=== PATIENT | female | born 1955 | race Caucasian/White ===

== ENCOUNTER 2018-11-13 10:48 | Observation (INO) | payer OTHER ==
[2018-11-13 12:13] LABS: Basophils # (A) 0.1 k/uL (0-0.2); Basophils % (A) 1 %; Eosinophils # (A) 0.4 k/uL (0-0.7); Eosinophils % (A) 4 %; HCT 42.9 % (34.0-46.0); HGB 13.9 gm/dL (11.4-16.0); Lymphocytes # (A) 3.8 k/uL (1.0-4.8); Lymphocytes % (A) 38 %; MCH 31.1 pg (25.0-35.0); MCHC 32.5 g/dL (31.0-37.0); MCV 95.7 fL (80.0-100.0); Mean Platelet Volume 7.1; Monocytes # (A) 0.5 k/uL (0-1.0); Monocytes % (A) 5 %; Neutrophils # (A) 5.2 k/uL (1.3-7.7); Neutrophils % (A) 52 %; Platelet Count 391 k/uL (150-450); RBC 4.48 m/uL (3.80-5.40); RDW 14.1 % (11.5-15.5); WBC 10.2 k/uL (3.8-10.6)
[2018-11-13 12:17] LABS: INR 0.9 (<1.2); Partial Thromboplastin Time 23.7 sec (22.0-30.0); Prothrombin Time 9.5 sec (9.0-12.0)
[2018-11-13 12:21] LABS: ALT 14 U/L (9-52); AST 15 U/L (14-36); Albumin 4.2 g/dL (3.5-5.0); Alkaline Phosphatase 83 U/L (38-126); Anion Gap 4 mmol/L; Blood Urea Nitrogen 20 mg/dL (7-17); Calcium 10.2 mg/dL (8.4-10.2); Carbon Dioxide 27 mmol/L (22-30); Chloride 109 mmol/L (98-107); Glucose 102 mg/dL (74-99); Lipase 141 U/L (23-300); Magnesium 2.2 mg/dL (1.6-2.3); Sodium 140 mmol/L (137-145); Total Bilirubin 0.4 mg/dL (0.2-1.3)
--- NOTE | 2018-11-13 12:32 | XR ---
EXAMINATION TYPE: XR chest 2V DATE OF EXAM: 11/13/2018 COMPARISON: None INDICATION: Chest pain TECHNIQUE: Frontal and lateral views of the chest are obtained. FINDINGS: The heart size is normal. The pulmonary vasculature is normal. There is some streak opacity at the left base could be some atelectasis. There is mild hyperinflation present. Correlate for respiratory effort versus COPD. There is a 1.3 cm density within the right lo wer lung field. Follow-up with CT is recommended. IMPRESSION: 1. Right lower lobe density. Neoplasm is not excluded. CT chest recommended for additional workup. 2. Mild streak atelectasis left base
--- NOTE | 2018-11-13 13:07 | ED ---
Chest Pain HPI - General Chief Complaint: Chest Pain Stated Complaint: kalyan, cough Time Seen by Provider: 11/13/18 11:29 Source: patient, RN notes reviewed, old records reviewed Mode of arrival: ambulatory Limitations: no limitations - History of Present Illness Initial Comments: This is a 62-year-old female the ER with chest pain today. Patient unsure medical history never seen a doctor was having crushing anterior chest pain with shortness of breath occasional diaphoresis occasional chills. Pain for a few days now with no alleviating factors. No prior cardiac evaluation, no recent travel history no sick contacts. MD Complaint: chest pain -: days(s) Onset: during rest, during exertion Pain Location: substernal, left chest Pain Radiation: none Severity: moderate Severity scale (1-10): 4 Quality: tightness, heaviness Consistency: intermittent Improves With: eating, movement, rest Worsens With: nothing Context: recent illness Other Symptoms: palpitations Treatments Prior to Arrival: none - Related Data Home Medications Medication Instructions Recorded Confirmed Hydrocodone/Acetaminophen [[place] 1 tab PO Q6HR PRN 11/13/18 11/13/18 7.5-325] Allergies Allergy/AdvReac Type Severity Reaction Status Date / Time No Known Allergies Allergy Verified 11/13/18 12:02 Review of Systems ROS Statement: Those systems with pertinent positive or pertinent negative responses have been documented in the HPI. ROS Other: All systems not noted in ROS Statement are negative. EKG Findings - EKG Comments: EKG Findings:: EKG shows sinus rhythm rate of 67, LA 146, QRS 76, QTc 428 Past Medical History Past Medical History: No Reported History History of Any Multi-Drug Resistant Organisms: None Reported Past Surgical History: Tonsillectomy Past Psychological History: No Psychological Hx Reported Smoking Status: Current every day smoker Past Alcohol Use History: Rare Past Drug Use History: None Reported General Exam Limitations: no limitations General appearance: alert, in no apparent distress Head exam: Present: atraumatic, normocephalic, normal inspection Eye exam: Present: normal appearance, PERRL, EOMI. Absent: scleral icterus, conjunctival injection, periorbital swelling ENT exam: Present: normal exam, mucous membranes moist Neck exam: Present: normal inspection. Absent: tenderness, meningismus, lymphadenopathy Respiratory exam: Present: normal lung sounds bilaterally. Absent: respiratory distress, wheezes, rales, rhonchi, stridor Cardiovascular Exam: Present: regular rate, normal rhythm, normal heart sounds. Absent: systolic murmur, diastolic murmur, rubs, gallop, clicks GI/Abdominal exam: Present: soft, normal bowel sounds. Absent: distended, tenderness, guarding, rebound, rigid Extremities exam: Present: normal inspection, full ROM, normal capillary refill. Absent: tenderness, pedal edema, joint swelling, calf tenderness Back exam: Present: normal inspection Neurological exam: Present: alert, oriented X3, CN II-XII intact Psychiatric exam: Present: normal affect, normal mood Skin exam: Present: warm, dry, intact, normal color. Absent: rash Course Vital Signs 11/13/18 11/13/18 11/13/18 11:20 12:01 12:20 Temperature 97.9 F Pulse Rate 87 58 L 75 Respiratory 18 Rate Blood Pressure 103/72 108/84 109/81 O2 Sat by Pulse 96 97 98 Oximetry 11/13/18 11/13/18 11/13/18 13:00 13:42 15:20 Temperature Pulse Rate 66 69 73 Respiratory 18 18 Rate Blood Pressure 111/62 113/73 112/99 O2 Sat by Pulse 97 98 98 Oximetry 11/13/18 11/13/18 16:11 17:34 Temperature Pulse Rate 65 74 Respiratory 18 16 Rate Blood Pressure 129/73 105/57 O2 Sat by Pulse 98 98 Oximetry - Reevaluation(s) Reevaluation #1: Medical records reviewed still complaining of chest pain Chest Pain MDM - MDM 62 female the ER shortness of breath and chest pain. Patient be admitted for cardiac observation. EKG normal troponin negative CTA negative for acute disease Disposition Clinical Impression: Chest pain Disposition: ADMITTED IP TO THIS HOSP Condition: Good Is patient prescribed a controlled substance at d/c from ED?: No
--- NOTE | 2018-11-13 14:23 | CT ---
EXAMINATION TYPE: CT angio chest DATE OF EXAM: 11/13/2018 COMPARISON: None HISTORY: NEELA, Cough CT DLP: 234.6 mGycm CONTRAST: CT chest with contrast and 3D reconstruction with MIP imaging is performed without and with IV Contra st, patient injected with 100 ml mL of Isovue 370. Contrast-enhanced CT of the chest was performed through the course of the pulmonary arteries with denny g and mediastinal window settings submitted. 3D reconstruction with MIP imaging was also performed. PULMONARY ARTERIES: The pulmonary arteries and their major tributaries are patent. I do not see xavier dence for sizable filling defect to suggest pulmonary embolic process. LUNGS: The lungs are clear and free of infiltrate. No evidence for atelectasis. No pulmonary nodule or mass is detected. No pleural effusion. Calcified granuloma right lung. Emphysematous changes no zaina. MEDIASTINUM: Thoracic aorta is of normal caliber,however, evaluation is limited given timing of the contrast bolus. If there is concern for thoracic aortic pathology consider HIREN. Correlate clinicall y . The heart is not enlarged. No evidence for mediastinal mass. No mediastinal lymph nodes greater than 1cm. HILAR STRUCTURES: No evidence for mass. No hilar lymph nodes greater than 1 cm. UPPER ABDOMEN: No significant abnormality is seen. IMPRESSION: 1. No evidence for Pulmonary embolism at this time.
[2018-11-13] MEDS ORDERED: ASPIRIN 81 MG PO STA (14:37)
[2018-11-13] MEDS ORDERED: HEPARIN SODIUM,PORCINE 5,000 UNIT/ML 1 ML VIAL IV PRN (14:37)
[2018-11-13] MEDS ORDERED: NITROGLYCERIN SL TABS 0.4 MG TAB SUBLINGUAL PRN (14:37)
[2018-11-13] MEDS ORDERED: HEPARIN SODIUM,PORCINE 5,000 UNIT/ML 1 ML VIAL IV ONE (14:37)
[2018-11-13] MEDS ORDERED: HEPARIN SOD,PORK IN 0.45% NACL 25,000 UNIT in 0.45% NACL 1 250ML.BAG IV SCH (14:45)
[2018-11-13] MEDS ORDERED: METOPROLOL TARTRATE 25 MG TAB PO SCH (21:00)
[2018-11-13 21:10] VITALS: RESP 18
[2018-11-13 21:16] VITALS: BMI 24.9
[2018-11-13] MEDS ORDERED: MORPHINE SULFATE 2 MG/ML SYRINGE IVP PRN (22:07)
[2018-11-14 00:51] LABS: D-Dimer 0.73 mg/L FEU (<0.60); Partial Thromboplastin Time 39.4 sec (22.0-30.0)
[2018-11-14 08:05] LABS: Mean Platelet Volume 7.4; Platelet Count 362 k/uL (150-450)
[2018-11-14 08:36] LABS: Cholesterol 211 mg/dL (<200); HDL Cholesterol 48 mg/dL (40-60); LDL Cholesterol,Calculated 142 mg/dL (0-99); Triglycerides 106 mg/dL (<150)
[2018-11-14] MEDS ORDERED: METOPROLOL TARTRATE 25 MG TAB PO SCH (09:00)
[2018-11-14] MEDS ORDERED: ATORVASTATIN 80 MG TAB PO SCH (09:00)
[2018-11-14] MEDS ORDERED: ASPIRIN 325 MG TAB PO SCH (09:00)
--- NOTE | 2018-11-14 10:23 | P.CRDCN ---
History of Present Illness History of present illness: This is a pleasant 62 female past medical history significant for chronic nicotine dependence. She denies any other previous medical history although she does not see a doctor nor has she ever in the past. We have been asked to see her in consultation for symptoms of chest discomfort. She states she has been coughing pretty significantly over the previous couple weeks and she recently developed a pain that is sharp in nature in the left precordial region that radiates around into the left axilla into the left mid back at times that is exacerbated by coughing and is worse on palpation. She is seen and examined resting comfortably in bed in no acute distress. She currently denies symptoms of chest discomfort, shortness of breath, dizziness or palpitations. EKG reveals sinus mechanism heart rate of [address] or T wave abnormalities noted. Chest x-ray reveals a right lower lobe density, neoplasm is not excluded with a mild streaky atelectasis at the left base. CTA chest is negative for pulmonary embolism, the lungs are clear and free of infiltrate with no evidence of atelectasis. Emphysematous changes are noted. Laboratory data reviewed, WBC 10.2, hemoglobin 13.9, platelets 362, d-dimer 0.73, sodium 140, potassium 5.0, magnesium 2.2, creatinine 0.77, cardiac enzymes negative 3, LDL 142, HDL 48 and NTproBNP 104. She currently takes no cardiac medications. At the time of my exam: CONSTITUTIONAL: Denies fever. Denies chills. EYES: Denies blurred vision. Denies vision changes. Denies eye pain. EARS, NOSE, MOUTH & THROAT: Denies headache. Denies sore throat. Denies ear pain. CARDIOVASCULAR: Denies chest pain. Denies shortness of breath. Denies orthopnea. Denies PND. Denies palpitations. RESPIRATORY: Denies cough. GASTROINTESTINAL: Denies abdominal pain. Denies diarrhea. Denies constipation. Denies nausea. Denies vomiting. MUSCULOSKELETAL: Denies myalgias. INTEGUMENTARY: Denies pruitis. Denies rash. NEUROLOGIC: Denies numbness. Denies tingling. Denies weakness. PSYCHIATRIC: Denies anxiety. Denies depression. ENDOCRINE: Denies fatigue. Denies weight change. Denies polydipsia. Denies polyurina. GENITOURINARY: Denies burning, hematuria or urgency with micturation. HEMATOLOGIC: Denies history of anemia. Denies bleeding. Blood pressure 99/61 heart rate 57 afebrile maintaining oxygen saturation on room air GENERAL: This is a 62-year-old female in no apparent distress at the time of my examination. HEENT: Head is atraumatic, normocephalic. Pupils are equal, round. Sclerae anicteric. Conjunctivae are clear. Mucous membranes of the mouth are moist. Neck is supple. There is no jugular venous distention. No carotid bruit is heard. LUNGS: Faint expiratory wheeze, scattered rhonchi, no rales. Respirations are equal and unlabored No chest wall tenderness is noted on palpation or with deep breathing. HEART: Regular rate and rhythm without murmurs, rubs or gallops. S1 and S2 heard. ABDOMEN: Soft, nontender. Bowel sounds are heard. No organomegaly noted. EXTREMITIES: No evidence of peripheral edema and no calf tenderness noted. VASCULAR: Radial and dorsalis pedis pulses palpated, no evidence of clubbing. NEUROLOGIC: Patient is awake, alert and oriented x3. ASSESSMENT Pleuritic chest pain, an acute event has been ruled out. Dyslipidemia Chronic nicotine dependence Probably underlying COPD PLAN An acute coronary event has been ruled out. Obtain 2-D echocardiogram and Doppler study to assess cardiac structure and function. Pain is very atypical for angina with pleuritc features and most likely related to coughing. Underlying COPD is probable. Advised her to see a [employer] Taper Helper as an outpatient. Overall stable from a cardiac perspective, follow up in the office with Dr. Sierra in 2 weeks for outpatient stress testing once her coughing has subsided. Thank you kindly for this consultation. Nurse Practitioner note has been reviewed, I agree with a documented findings and plan of care. Patient was seen and examined. Past Medical History Past Medical History: No Reported History History of Any Multi-Drug Resistant Organisms: None Reported Past Surgical History: Tubal Ligation Smoking Status: Current every day smoker - Past Family History Mother Family Medical History: Cancer Additional Family Medical History / Comment(s): Breast Ca, hip replacement Father Additional Family Medical History / Comment(s): lukemia, triple bypass Medications and Allergies Home Medications Medication Instructions Recorded Confirmed Type Hydrocodone/Acetaminophen [[place] 1 tab PO Q6HR PRN 11/13/18 11/13/18 History 7.5-325] Allergies Allergy/AdvReac Type Severity Reaction Status Date / Time No Known Allergies Allergy Verified 11/13/18 21:04 Physical Exam Vitals: Vital Signs Temp Pulse Pulse Resp BP BP Pulse Ox 11/14/18 07:15 98.4 F 57 L 18 99/61 98 11/14/18 03:57 98.3 F 70 18 90/59 93 L 11/14/18 03:32 18 11/14/18 00:00 98.1 F 65 18 96/64 97 11/13/18 21:08 98.0 F 72 18 109/67 96 11/13/18 20:26 98.5 F 81 16 94/61 98 11/13/18 20:00 18 11/13/18 19:03 77 18 104/68 97 11/13/18 17:34 74 16 105/57 98 11/13/18 16:11 65 18 129/73 98 11/13/18 15:20 73 18 112/99 98 11/13/18 13:42 69 18 113/73 98 11/13/18 13:00 66 111/62 97 11/13/18 12:20 75 109/81 98 11/13/18 12:01 58 L 108/84 97 11/13/18 11:20 97.9 F 87 18 103/72 96 Intake and Output 11/13/18 11/14/18 11/14/18 22:59 06:59 14:59 Intake Total 80.509 Balance 80.509 Intake: Intake, IV Titration 80.509 Amount Heparin Sod,Pork in 0.45% 80.509 NaCl 25,000 unit In 0.45 % NaCl 1 250ml.bag @ 12 UNITS/KG/HR 7.893 mls/hr IV .Q24H [facility] Rx#: [id number] Other: # Voids 1 1 Results 11/14/18 07:36 11/13/18 11:56 Cardiac Enzymes 11/13/18 11/13/18 11/13/18 Range/Units 11:56 11:56 17:24 AST 15 (14-36) U/L Troponin I <0.012 <0.012 (0.000-0.034) ng/mL 11/14/18 Range/Units 00:15 AST (14-36) U/L Troponin I <0.012 (0.000-0.034) ng/mL Coagulation 11/13/18 11/14/18 11/14/18 Range/Units 11:56 00:15 07:36 PT 9.5 (9.0-12.0) sec APTT 23.7 39.4 H 52.9 H (22.0-30.0) sec CBC 11/13/18 Range/Units 11:56 WBC 10.2 (3.8-10.6) k/uL RBC 4.48 (3.80-5.40) m/uL Hgb 13.9 (11.4-16.0) gm/dL Hct 42.9 (34.0-46.0) % Plt Count 391 (150-450) k/uL Comprehensive Metabolic Panel 11/13/18 Range/Units 11:56 Sodium 140 (137-145) mmol/L Potassium 5.0 (3.5-5.1) mmol/L Chloride 109 H (98-107) mmol/L Carbon Dioxide 27 (22-30) mmol/L BUN 20 H (7-17) mg/dL Creatinine 0.77 (0.52-1.04) mg/dL Glucose 102 H (74-99) mg/dL Calcium 10.2 (8.4-10.2) mg/dL AST 15 (14-36) U/L ALT 14 (9-52) U/L Alkaline Phosphatase 83 (38-126) U/L Total Protein 7.0 (6.3-8.2) g/dL Albumin 4.2 (3.5-5.0) g/dL Current Medications Generic Name Dose Route Start Last Admin Trade Name Freq PRN Reason Stop Dose Admin Aspirin 325 mg 11/14/18 09:00 Aspirin PO DAILY [facility] Atorvastatin Calcium 80 mg 11/14/18 09:00 Lipitor PO DAILY [facility] Heparin Sodium (Porcine) 0 unit 11/13/18 14:37 Heparin IV Q6HR PRN Low PTT Protocol Heparin Sodium/Sodium Chloride 250 mls @ 7.893 mls/hr 11/13/18 14:45 11/14/18 01:29 25,000 unit/ Sodium Chloride IV 15 units/kg/hr .Q24H [facility] 9.866 mls/hr Titration Protocol 12 UNITS/KG/HR Metoprolol Tartrate 25 mg 11/13/18 21:00 11/13/18 22:17 Lopressor PO 25 mg BID [facility] Administration Morphine Sulfate 2 mg 11/13/18 22:07 11/13/18 22:17 Morphine Sulfate (Inj) IVP 2 mg Q4H PRN Administration Pain/Discomfort Nitroglycerin 0.4 mg 11/13/18 14:37 Nitrostat SUBLINGUAL Q5M PRN Chest Pain Intake and Output 11/13/18 11/14/18 11/14/18 22:59 06:59 14:59 Intake Total 80.509 Balance 80.509 Intake: Intake, IV Titration 80.509 Amount Heparin Sod,Pork in 0.45% 80.509 NaCl 25,000 unit In 0.45 % NaCl 1 250ml.bag @ 12 UNITS/KG/HR 7.893 mls/hr IV .Q24H [facility] Rx#: [id number] Other: # Voids 1 1 11/13/18 11:56 11/13/18 11:56
[2018-11-14 11:35] VITALS: BP 95/49; PULSE 62; TEMP 98.3
--- NOTE | 2018-11-14 13:32 | ECHOF ---
Referral Reason:cp, sob MEASUREMENTS -------- HEIGHT: 162.6 cm WEIGHT: 65.8 kg BP: IVSd: 1.1 cm (0.6 - 1.1) LVIDd: 3.6 cm (3.9 - 5.3) LVPWd: 1.0 cm (0.6 - 1.1) IVSs: 1.8 cm LVIDs: 1.9 cm LVPWs: 1.5 cm LAESV Index (A-L): 15.01 ml/m Ao Diam: 3.0 cm (2.0 - 3.7) AV Cusp: 1.8 cm (1.5 - 2.6) LA Diam: 2.0 cm (2.7 - 3.8) MV EXCURSION: 11.453 mm (> 18.000) MV EF SLOPE: 69 mm/s (70 - 150) EPSS: 0.5 cm MV E Kofi: 0.69 m/s MV DecT: 303 ms MV A Kofi: 0.67 m/s MV E/A Ratio: 1.03 RAP: 5.00 mmHg RVSP: 24.03 mmHg FINDINGS -------- Sinus rhythm. This was a technically good study. The left ventricular size is normal. Left ventricular wall thickness is normal. Overall left vent ricular systolic function is normal with, an EF between 55 - 60 %. The right ventricle is normal in size. Normal LA size by volume 22+/-6 ml/m2. The right atrial size is normal. Interatrial and interventricular septum intact. Aortic valve is trileaflet and is mildly thickened. The mitral valve leaflets are mildly thickened. Mild mitral regurgitation is present. Mild tricuspid regurgitation present. The right ventricular systolic pressure, as measured by Doppl er, is 24.03mmHg. There is no pulmonic regurgitation present. The aortic root size is normal. Normal inferior vena cava with normal inspiratory collapse consistent with estimated right atrial pre ssure of 5 mmHg. There is no pericardial effusion. CONCLUSIONS -------- 1. Sinus rhythm. 2. This was a technically good study. 3. The left ventricular size is normal. 4. Left ventricular wall thickness is normal. 5. Overall left ventricular systolic function is normal with, an EF between 55 - 60 %. 6. The right ventricle is normal in size. 7. Normal LA size by volume 22+/-6 ml/m2. 8. The right atrial size is normal. 9. Interatrial and interventricular septum intact. 10. Aortic valve is trileaflet and is mildly thickened. 11. The mitral valve leaflets are mildly thickened. 12. Mild mitral regurgitation is present. 13. Mild tricuspid regurgitation present. 14. The right ventricular systolic pressure, as measured by Doppler, is 24.03mmHg. 15. There is no pulmonic regurgitation present. 16. The aortic root size is normal. 17. Normal inferior vena cava with normal inspiratory collapse consistent with estimated right atrial pressure of 5 mmHg. 18. There is no pericardial effusion. SAMPLE PULLER: Margo Gupta RDCS
--- NOTE | 2018-11-14 14:36 | P.HPIM ---
History of Present Illness 62-year-old female was admitted for chest pain chest pain appears to be [place] skeletal noncardiac sharp in nature in the precordial region radiating to the left axilla exacerbated by coughing. Patient chest pain doesn't increase with deep breathing nonpleuritic CT angios the chest did not show any pulmonary embolism or pneumonia patient does smoke is dealing with upper respiratory infection and has been having cough which led to Musko skeletal pain. Patient denied any shortness of breath patient appears to be congested although does not appear to be in COPD exacerbation does not have any wheezing on exam. Patient does have elevated LDL of 142, dietary counseling was provided and asked to follow-up with sales producer as an outpatient to discuss regarding low- cholesterol diet and the LDL into repeated in a month if still stays side will need statin. Patient the had 3 troponin levels and EKGs which did not show any acute ST-T wave changes troponins are negative was a valid by cardiology recommended outpatient stress test and patient is being discharged today with doxycycline for possible upper respiratory infection as bacterial bronchitis cannot be ruled out and as needed albuterol. Review of Systems REVIEW OF SYSTEMS: CONSTITUTIONAL: No fever, no malaise, no fatigue. HEENT: No recent visual problems or hearing problems. Denied any sore throat. CARDIOVASCULAR: No orthopnea, PND, no palpitations, no syncope. PULMONARY: No shortness of breath, no cough, no hemoptysis. GASTROINTESTINAL: No diarrhea, no nausea, no vomiting, no abdominal pain. NEUROLOGICAL: No headaches, no weakness, no numbness. HEMATOLOGICAL: Denies any bleeding or petechiae. GENITOURINARY: Denies any burning micturition, frequency, or urgency. MUSCULOSKELETAL/RHEUMATOLOGICAL: Denies any joint pain, swelling, or any muscle pain. ENDOCRINE: Denies any polyuria or polydipsia. The rest of the 14-point review of systems is negative. Past Medical History Past Medical History: No Reported History History of Any Multi-Drug Resistant Organisms: None Reported Past Surgical History: Tubal Ligation Smoking Status: Current every day smoker - Past Family History Mother Family Medical History: Cancer Additional Family Medical History / Comment(s): Breast Ca, hip replacement Father Additional Family Medical History / Comment(s): lukemia, triple bypass Medications and Allergies Home Medications Medication Instructions Recorded Confirmed Type Hydrocodone/Acetaminophen [[place] 1 tab PO Q6HR PRN 11/13/18 11/13/18 History 7.5-325] Albuterol Inhaler [Ventolin Hfa 1 - 2 puff INHALATION Q6HR PRN #1 11/14/18 Rx Inhaler] inhaler Doxycycline Monohydrate [Monodox] 100 mg PO BID 3 Days #6 cap 11/14/18 Rx Allergies Allergy/AdvReac Type Severity Reaction Status Date / Time No Known Allergies Allergy Verified 11/13/18 21:04 Physical Exam Vitals: Vital Signs Temp Pulse Pulse Resp BP BP BP 11/14/18 11:34 98.3 F 62 18 95/49 11/14/18 07:15 98.4 F 57 L 18 99/61 11/14/18 03:57 98.3 F 70 18 90/59 11/14/18 03:32 18 11/14/18 00:00 98.1 F 65 18 96/64 11/13/18 21:08 98.0 F 72 18 109/67 11/13/18 20:26 98.5 F 81 16 94/61 11/13/18 20:00 18 11/13/18 19:03 77 18 104/68 11/13/18 17:34 74 16 105/57 11/13/18 16:11 65 18 129/73 11/13/18 15:20 73 18 112/99 Pulse Ox 11/14/18 11:34 96 11/14/18 07:15 98 11/14/18 03:57 93 L 11/14/18 03:32 11/14/18 00:00 97 11/13/18 21:08 96 11/13/18 20:26 98 11/13/18 20:00 11/13/18 19:03 97 11/13/18 17:34 98 11/13/18 16:11 98 11/13/18 15:20 98 Intake and Output 11/13/18 11/14/18 11/14/18 22:59 06:59 14:59 Intake Total 80.509 200 Balance 80.509 200 Intake: Intake, IV Titration 80.509 Amount Heparin Sod,Pork in 0.45% 80.509 NaCl 25,000 unit In 0.45 % NaCl 1 250ml.bag @ 12 UNITS/KG/HR 7.893 mls/hr IV .Q24H [facility] Rx#: [id number] Oral 200 Other: # Voids 1 1 PHYSICAL EXAMINATION: GENERAL: The patient is alert and oriented x3, not in any acute distress. Well developed, well nourished. HEENT: Pupils are round and equally reacting to light. EOMI. No scleral icterus. No conjunctival pallor. Normocephalic, atraumatic. No pharyngeal erythema. No thyromegaly. CARDIOVASCULAR: S1 and S2 present. No murmurs, rubs, or gallops. PULMONARY: Chest is clear to auscultation, no wheezing or crackles. ABDOMEN: Soft, nontender, nondistended, normoactive bowel sounds. No palpable organomegaly. MUSCULOSKELETAL: No joint swelling or deformity. EXTREMITIES: No cyanosis, clubbing, or pedal edema. NEUROLOGICAL: Gross neurological examination did not reveal any focal deficits. SKIN: No rashes. Results CBC & Chem 7: 11/14/18 07:36 11/13/18 11:56 Labs: Abnormal Lab Results - Last 24 Hours (Table) 11/14/18 11/14/18 11/14/18 Range/Units 00:15 07:36 07:36 APTT 39.4 H 52.9 H (22.0-30.0) sec D-Dimer 0.73 H (<0.60) mg/L FEU Cholesterol 211 H (<200) mg/dL LDL Cholesterol, Calc 142 H (0-99) mg/dL Thrombosis Risk Factor Assmnt - Choose All That Apply Each Risk Factor Represents 2 Points: Age 61-74 years Thrombosis Risk Factor Assessment Total Risk Factor Score: 2 Thrombosis Risk Factor Assessment Level: Low Risk Assessment and Plan Plan: -Chest pain: Musculoskeletal ruled out acute coronary syndromes outpatient stress test further management as mentioned above patient is being discharged today. -Upper respiratory infection Bactrim bronchitis cannot be ruled out doxycycline for 3 days ruled out pulmonary embolism and pneumonia. -Nicotine abuse: Counseling was provided -Hyperlipidemia: Dietary counseling was provided Patient will be discharged today with follow-up with the primary care physician in [facility] Dr. Ravi
--- NOTE | 2018-11-14 14:37 | P.DS ---
Providers Date of admission: 11/13/18 14:37 Attending physician: Joy An Consults: 11/13/18 14:37 Consult Physician Urgent Consulting Provider: Darren Granger Consult Reason/Comments: cp Do you want consulting provider notified?: Yes Primary care physician: Stated None Hospital Course: Please refer to my HPI Patient Condition at Discharge: Good Plan - Discharge Summary New Discharge Prescriptions: New Doxycycline Monohydrate [Monodox] 100 mg PO BID 3 Days #6 cap Albuterol Inhaler [Ventolin Hfa Inhaler] 1 - 2 puff INHALATION Q6HR PRN #1 inhaler PRN Reason: Shortness Of Breath Or Wheezing No Action Hydrocodone/Acetaminophen [[place] 7.5-325] 1 tab PO Q6HR PRN PRN Reason: Pain Discharge Medication List Hydrocodone/Acetaminophen [[place] 7.5-325] 1 tab PO Q6HR PRN 11/13/18 [History] Albuterol Inhaler [Ventolin Hfa Inhaler] 1 - 2 puff INHALATION Q6HR PRN #1 i nhaler 11/14/18 [Rx] Doxycycline Monohydrate [Monodox] 100 mg PO BID 3 Days #6 cap 11/14/18 [Rx] Follow up Appointment(s)/Referral(s): Lawson Ravi MD [STAFF PHYSICIAN] - 1 Week Jean Sierra MD [STAFF PHYSICIAN] - 1 Week (Office will call you with appointment to follow up with Dr. TISHA Sierra for outpatient stress test) None,Stated [Primary Care Provider] - 1-2 days Patient Instructions/Handouts: Chest Pain (ED) Discharge Disposition: HOME SELF-CARE
[2018-11-15] MEDS ORDERED: ASPIRIN 81 MG PO SCH (09:00)
[2018-11-15] MEDS ORDERED: ATORVASTATIN 40 MG TAB PO SCH (09:00)
== END 2018-11-14 14:26 | disposition home or self-care (01) ==
LOC: EC 10:48 → 1SOBS 14:37
PROVIDERS: ADMIT Hospitalist; ATTEND Hospitalist
DX: R07.81 Pleurodynia (principal); E78.5 Hyperlipidemia, unspecified; J06.9 Acute upper respiratory infection, unspecified; J44.9 Chronic obstructive pulmonary disease, unspecified; Z71.6 Tobacco abuse counseling; F17.200 Nicotine dependence, unspecified, uncomplicated; Z98.890 Other specified postprocedural states; Z71.3 Dietary counseling and surveillance; Z80.3 Family history of malignant neoplasm of breast; Z82.49 Family history of ischemic heart disease and other diseases of the circulatory system
CPT/HCPCS: 96366 ×3; 96375; 96376; 96365; 99285; 36415; 93005; 93306; 85379; 83880; 80061; 80053; 83690; 83735; 84484 ×2; 85025; 85049; 85610; 85730 ×2; 71046; 71275; G0378 ×2; J1644 ×2; J2270; Q9967